=== PATIENT | female | born 1965 | race Native Hawaiian/Other Pacific Islander ===

== ENCOUNTER → 2024-06-22 | Outpatient (CLI) | payer BC ==
--- NOTE | 2024-07-01 21:51 | MM ---
Reason for Exam: Screening (asymptomatic). Last mammogram was performed 3 year(s) and 8 month(s) ago. Patient History: Menarche at age 18. First Full-Term at age 23. Hysterectomy at age 54. Postmenopausal. Risk Values: Amalia 5 year model risk: 1.1%. NCI Lifetime model risk: 6.2%. Prior Study Comparison: 10/20/2020 Bilateral Screening Mammogram, [facility]. Tissue Density: The breasts are heterogeneously dense, which may obscure small masses. Findings: Analyzed By CAD. The pattern is symmetrical. No suspicious groups of microcalcifications, spiculated or lobular masses, architectural distortion or other secondary signs of malignancy are mammographically apparent. Overall Assessment: Negative, BI-RAD 1 Management: Screening Mammogram of both breasts in 1 year. A negative mammogram report should not preclude additional follow up of suspicious palpable abnormalities. Patient should continue monthly self breast exam. A clinical breast exam by your physician is recommended on an annual basis and results should be correlated with mammographic findings. Note on Amalia scores and lifetime risk: 1. A Amalia score greater than 3% is considered moderate risk. If this is the case, consider specialist referral to assess eligibility for a risk reducing agent. 2. If overall lifetime risk for the development of breast cancer is 20% or higher, the patient may qualify for future screening with alternating mammogram and breast MRI. [facility], , 07/01/2024 9:48 PM. Electronically signed and approved by: Eloy Vyas D.O. Radiologis
== END | disposition home or self-care (01) ==
LOC: RADMAMWWP 10:14
PROVIDERS: ATTEND Family Medicine
CPT/HCPCS: 77067